=== PATIENT | male | born 1945 | race Caucasian/White ===

== ENCOUNTER 2019-12-04 15:14 | Emergency (ER) | payer MEDICARE, OTHER ==
[~2019-12-04] VITALS: Ht 165.1 cm; Wt 70.3 kg
[2019-12-04 17:31] LABS: BASOPHILS # (AUTO) 0.1 (0.0-0.1); BASOPHILS % 0.5 % (0.0-1.0); EOSINOPHILS # (AUTO) 0.1 (0.0-0.4); EOSINOPHILS % 0.8 % (0.0-6.0); HEMATOCRIT 41.2 % (38.2-49.6); HEMOGLOBIN 13.7 g/dL (14.0-18.0); LYMPHOCYTES # (AUTO) 3.2 (1.0-3.2); LYMPHOCYTES % 27.1 % (18.0-39.1); MEAN CORPUSCULAR HEMOGLOBIN 30.4 pg (28-32); MEAN CORPUSCULAR HGB CONC 33.3 g/dL (31-35); MEAN CORPUSCULAR VOLUME 91.6 fL (81-99); MONOCYTES # (AUTO) 0.6 (0.2-0.8); MONOCYTES % 5.3 % (4.4-11.3); NEUTROPHILS # (AUTO) 7.8 (2.1-6.9); PLATELET COUNT 269 x10e3/uL (140-360); RED CELL DISTRIBUTION WIDTH 13.5 % (11.7-14.4)
[2019-12-04 17:38] LABS: INR 1.02; PROTHROMBIN TIME 13.9 seconds (11.9-14.5)
[2019-12-04 17:39] LABS: PARTIAL THROMBOPLASTIN TIME 35.2 seconds (23.8-35.5)
[2019-12-04 17:46] LABS: ALANINE AMINOTRANSFERASE 16 IU/L (0-55); ALBUMIN 4.2 g/dL (3.5-5.0); ALBUMIN/GLOBULIN RATIO 1.2 (0.8-2.0); ALKALINE PHOSPHATASE 77 IU/L (40-150); BLOOD UREA NITROGEN 19 mg/dL (7-26); BUN/CREATININE RATIO 18 (6-25); CALCIUM 9.2 mg/dL (8.4-10.2); CARBON DIOXIDE 25 mmol/L (22-29); CHLORIDE 103 mmol/L (98-107); CREATINE KINASE 125 IU/L (30-200); CREATININE, SERUM 1.07 mg/dL (0.72-1.25); EST GLOMERULAR FILTRATION RATE > 60 ML/MIN (60-); GLUCOSE 114 mg/dL (74-118); SODIUM 139 mmol/L (136-145)
[2019-12-04 17:51] LABS: BILIRUBIN,URINE NEGATIVE (NEGATIVE); CLARITY,URINE CLEAR (CLEAR); COLOR,URINE YELLOW (YELLOW); KETONES,URINE NEGATIVE (NEGATIVE); LEUKOCYTE ESTERASE ,URINE NEGATIVE (NEGATIVE); NITRITE,URINE NEGATIVE (NEGATIVE); PROTEIN,URINE DIPSTICK NEGATIVE (NEGATIVE); URINE UROBILINOGEN 0.2 mg/dL (0.2 - 1)
[2019-12-04 18:02] LABS: BACTERIA,URINE FEW /HPF
--- NOTE | 2019-12-04 18:09 | Emergency Department Note ---
History of Present Illnes History of Present Illness Chief Complaint: General Medicine Complaints History of Present Illness This is a 74 year old male presents to the ED for 3 month history of back pain. Patient had outpatient XR done of the back which demonstrated a large aortic aneurysm. Outpatient XR unable to contact PCP and was sent to the ED for further management. Historian: Patient Arrival Mode: Car Onset (how long ago): week(s) Radiation: Reports back Severity: mild Onset quality: gradual Duration (how long): month(s) (3) Timing of current episode: constant Progression: unchanged Chronicity: new Context: Denies recent illness, Denies recent surgery, Denies recent immobilization, Denies recent travel, Denies trauma/injury, Denies new medications, Denies hx of DVT/PE, Denies non-compliance w/ medications, Denies other Relieving factors: none Exacerbating factors: none Associated symptoms: Denies denies other symptoms, Denies confusion, Denies chest pain, Denies cough, Denies diaphoresis, Denies fever/chills, Denies headaches, Denies loss of appetite, Denies malaise, Denies nausea/vomiting, Denies rash, Denies seizure, Denies shortness of breath, Denies syncope, Denies weakness, Denies other Treatments prior to arrival: none Past Medical/Family History Physician Review I have reviewed the patient's past medical and family history. Any updates have been documented here. Past Medical History Recent Fever: No Clinical Suspicion of Infectio: No New/Unexplained Change in Ment: No Past Medical History: Hypertension, Depression, Hyperlipedemia, Osteoarthritis Other Medical History: BPH Past Surgical History: None Social History Smoking Cessation: Never Smoker Counseling Performed: No Alcohol Use: None Any Illegal Drug Use: No Other Any Pre-Existing Lines (PICC,: No Review of Systems Review of Systems Constitutional: Reports no symptoms EENTM: Reports no symptoms Cardiovascular: Reports no symptoms Respiratory: Reports no symptoms Gastrointestinal: Reports no symptoms Genitourinary: Reports no symptoms Musculoskeletal: Reports back pain Integumentary: Reports no symptoms Neurological: Reports no symptoms Psychological: Reports no symptoms Endocrine: Reports no symptoms Hematological/Lymphatic: Reports no symptoms Physical Exam Related Data Allergies: Coded Allergies: No Known Allergies (Unverified , 12/04/19) Triage Vital Signs Vital Signs Date Time Temp Pulse Resp B/P (MAP) Pulse Ox O2 Delivery O2 Flow Rate FiO2 12/04/19 16:45 97.6 62 16 128/85 100 Room Air Vital signs reviewed: Yes Physical Exam CONSTITUTIONAL Constitutional: Present well-developed, Present well-nourished HENT HENT: Present normocephalic, Present atraumatic, Present oropharynx clear/moist, Present nose normal HENT L/R: Present left ext ear normal, Present right ext ear normal EYES Eyes: Reports PERRL, Reports conjunctivae normal NECK Neck: Present ROM normal PULMONARY Pulmonary: Present effort normal, Present breath sounds normal CARDIOVASCULAR Cardiovascular: Present regular rhythm, Present heart sounds normal, Present capillary refill normal, Present normal rate GASTROINTESTINAL Abdominal: Present soft, Present nontender, Present bowel sounds normal GENITOURINARY Genitourinary: Present exam deferred SKIN Skin: Present warm, Present dry MUSCULOSKELETAL Musculoskeletal: Present ROM normal NEUROLOGICAL Neurological: Present alert, Present oriented x 3, Present no gross motor or sensory deficits PSYCHOLOGICAL Psychological: Present mood/affect normal, Present judgement normal Results Laboratory Result Diagram: 12/04/19 1658 12/04/19 1658 Laboratory Laboratory Tests Test 12/04/19 17:08 12/04/19 16:58 Urine Color Yellow (YELLOW) Urine Clarity Clear (CLEAR) Urine pH 5.5 (5 - 7) Urine Specific [place] 1.025 (1.010-1.025) Urine Protein Negative (NEGATIVE) Urine Glucose (UA) Negative (NEGATIVE) Urine Ketones Negative (NEGATIVE) Urine Blood Small (NEGATIVE) Urine Nitrite Negative (NEGATIVE) Urine Bilirubin Negative (NEGATIVE) Urine Urobilinogen 0.2 mg/dL (0.2 - 1) Urine Leukocyte Esterase Negative (NEGATIVE) Urine RBC 6-10 /HPF (0-5) Urine WBC None /HPF (0-5) Urine Epithelial Cells None /LPF (NONE) Urine Bacteria Few /HPF (NONE) White Blood Count 11.86 x10e3/uL (4.8-10.8) Red Blood Count 4.50 x10e6/uL (4.3-5.7) Hemoglobin 13.7 g/dL (14.0-18.0) Hematocrit 41.2 % (38.2-49.6) Mean Corpuscular Volume 91.6 fL (81-99) Mean Corpuscular Hemoglobin 30.4 pg (28-32) Mean Corpuscular Hemoglobin Concent 33.3 g/dL (31-35) Red Cell Distribution Width 13.5 % (11.7-14.4) Platelet Count 269 x10e3/uL (140-360) Neutrophils (%) (Auto) 66.0 % (38.7-80.0) Lymphocytes (%) (Auto) 27.1 % (18.0-39.1) Monocytes (%) (Auto) 5.3 % (4.4-11.3) Eosinophils (%) (Auto) 0.8 % (0.0-6.0) Basophils (%) (Auto) 0.5 % (0.0-1.0) Neutrophils # (Auto) 7.8 (2.1-6.9) Lymphocytes # (Auto) 3.2 (1.0-3.2) Monocytes # (Auto) 0.6 (0.2-0.8) Eosinophils # (Auto) 0.1 (0.0-0.4) Basophils # (Auto) 0.1 (0.0-0.1) Absolute Immature Granulocyte (auto 0.04 x10e3/uL (0-0.1) Prothrombin Time 13.9 seconds (11.9-14.5) Prothromb Time International Ratio 1.02 Activated Partial Thromboplast Time 35.2 seconds (23.8-35.5) Sodium Level 139 mmol/L (136-145) Potassium Level 4.0 mmol/L (3.5-5.1) Chloride Level 103 mmol/L (98-107) Carbon Dioxide Level 25 mmol/L (22-29) Anion Gap 15.0 mmol/L (8-16) Blood Urea Nitrogen 19 mg/dL (7-26) Creatinine 1.07 mg/dL (0.72-1.25) Estimat Glomerular Filtration Rate > 60 ML/MIN (60-) BUN/Creatinine Ratio 18 (6-25) Glucose Level 114 mg/dL (74-118) Calcium Level 9.2 mg/dL (8.4-10.2) Total Bilirubin 0.2 mg/dL (0.2-1.2) Aspartate Amino Transf (AST/SGOT) 18 IU/L (5-34) Alanine Aminotransferase (ALT/SGPT) 16 IU/L (0-55) Alkaline Phosphatase 77 IU/L (40-150) Creatine Kinase 125 IU/L (30-200) Troponin I 0.001 ng/mL (0-0.300) Total Protein 7.8 g/dL (6.5-8.1) Albumin 4.2 g/dL (3.5-5.0) Globulin 3.6 g/dL (2.3-3.5) Albumin/Globulin Ratio 1.2 (0.8-2.0) Imaging Imaging results reviewed: Yes Impressions [place] [id number] Patient Name: SETH MARROQUIN MR #: [id number] : 1945 Age/Sex: 74/M Req #: [id number] Adm Physician: Ordered by: ROSALIE GALLOWAY DO Report #: [id number] Location: ER Room/Bed: Procedure: [id number] CT/CTA CHEST Exam Date: 12/04/19 Exam Time: 1825 REPORT STATUS: Signed EXAM: CTA of the Thoracoabdominal Aorta and Pelvic Arteries WITH Contrast INDICATION:^back pain ^20191204 ^1825 COMPARISON: Abdominal aortic ultrasound performed earlier on the same day (12/04/2019) TECHNIQUE: Multi-detector CT technology was employed. CTA Gated axial imaging of the chest, abdomen, and pelvis was performed after the administration of IV contrast. IV CONTRAST: 100 mL of Isovue 370 ORAL CONTRAST: None COMPLICATIONS: None RADIATION DOSE: Total DLP: 474.18 mGy*cm Estimated effective dose: (DLP x 0.015 x size factor) mSv CTDIvol has been reviewed. It is below the limits set by the Radiation Protocol Committee (RPC). For optimization of anatomic evaluation, multiplanar reconstruction, maximum intensity projections, and advanced 3-D off-line postprocessing were performed on a dedicated stand-alone workstation under the direct supervision of the interpreting physician. FINDINGS: Potential study limitations: None. LINES/ TUBES: None. VASCULAR WITH ADVANCED 3-D OFF-LINE POSTPROCESSING: Aortic valve morphology is trileaflet and contains no calcifications. The thoracic aorta is normal in course. There is no acute aortic pathology, such as dissection, intramural hematoma, or contained rupture. Aneurysmal dilatation of the distal aortic arch, immediately after the origin of the left subclavian artery, measuring up to 4.5 cm in maximal dimension. Associated atherosclerotic plaque with small plaque ulceration, largest measures up to 0.5 cm in depth. Additional fusiform aneurysmal dilatation of the distal thoracic aorta, measuring up to 6.3 cm in maximal dimension. Associated noncalcified atherosclerotic plaque or chronic thrombus extends along 50% of the circumference. Aortic plaques: Mild. The arch vessel branching pattern is conventional. All of the arch branch vessels appear widely patent in their proximal portions. Abdominal aortic aneurysm detail anatomy: Fusiform aneurysm of the infrarenal abdominal aorta, which begins immediately after the origin of the renal arteries and extends down to aortic bifurcation. The aneurysm measures up to 6.6 x 6.5 cm in maximal dimension with circumferential noncalcified atherosclerotic plaque versus chronic thrombus. The abdominal aorta is normal in course. There is no acute aortic pathology. Mixing artifact at the distal abdominal aorta/aortic bifurcation partially limits evaluation. Aortic plaques: Moderate. 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 The abdominal aorta measures: 2.9 cm at the supramesenteric segment 2.6 cm at the mesenteric segment 3.4 cm at the renal segment 6.6 cm at the mid infrarenal segment 3.9 cm at the aortic bifurcation. The celiac axis and SMA are patent. There are single renal arteries bilaterally, both of which appear patent. CHACORTA arises from infrarenal abdominal aortic aneurysm and is not opacified with contrast. The pelvic arteries are normal in caliber and contour. There are moderate atherosclerotic changes of the pelvic arteries. 1.4 cm at the right common iliac artery 1 cm at the right external iliac artery 1.1 cm at the left common iliac artery 1 cm at the left external iliac artery LUNGS AND AIRWAYS: Calcified granulomas in the right upper and lower lobes measure up to 3 mm. No additional suspicious pulmonary nodules or consolidations. Focal cystic changes along the lateral mediastinal portion of the right lower lobe. Airways are patent. PLEURA: The pleural spaces are clear.. HEART AND MEDIASTINUM: The thyroid gland is normal. No mediastinal, hilar or axillary lymphadenopathy. The main pulmonary artery is normal in size. The cardiac chambers are normal in size. The coronary arteries have normal origins and courses. There are moderate coronary calcifications identified, though this study was not optimized for coronary artery evaluation. There is no pericardial effusion. ABDOMEN/PELVIS: The liver, gallbladder, spleen, and pancreas are unremarkable. No abnormal thickening or nodules in the adrenal glands. Both kidneys are normal in size, shape, and density. There is no abnormal mass or hydronephrosis. Urinary bladder is unremarkable. Mildly enlarged prostate with dystrophic calcifications. No abnormal bowel wall thickening, dilation, or evidence of obstruction. Scattered colonic diverticula without evidence of acute diverticulitis. There is no significant retroperitoneal adenopathy. No free fluid or free air within the abdomen or pelvis. BONES/SOFT TISSUES: Transitional lumbosacral anatomy with partial sacralization of L5. Bilateral L4 pars defects with grade 2 anterolisthesis at L4 on L5. Associated advanced degenerative disc changes. Otherwise, no acute osseous abnormalities. No acute soft tissue abnormalities. IMPRESSION: 1. Fusiform aneurysm of the distal arch/proximal descending thoracic aorta measuring up to 4.5 cm with small plaque ulceration. 2. Fusiform aneurysm of the distal descending thoracic aorta measuring up to 6.3 cm with noncalcified plaque and/or chronic thrombus. 3. Fusiform aneurysm of the infrarenal abdominal aorta measuring up to 6.6 cm with noncalcified plaque and/or chronic thrombus. 4. No evidence of acute aortic injury, such as dissection or aneurysm rupture. 5. CHACORTA arises from infrarenal abdominal aortic aneurysm and appears occluded. 6. Colonic diverticulosis without evidence of acute diverticulitis. 7. 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 Signed by: Dr. Dionna Larkin M.D. on 12/04/2019 8:36 PM Dictated By: DIONNA LARKIN MD 35 Transcribed By: KRISTYN on 12/04/192035 COPY TO: ROSALIE GALLOWAY DO~ Procedures FAST Exam FAST Exam: FAST Exam 1 Fluid in Morison's pouch: No Fluid in splenorenal junction: No Fluid around bladder, traverse: No Fluid around bladder, sagittal: No Fluid in pericardial sac: No Gross wall motion abnormality: No Study normal for this patient: No Critical Care Time Total Critical Care Time (min): 31 Critcal care necessary due to: shock Critcal care time spent by me: develop tx plan w patient/surrogate, discussion w consultants, discussion w primary provider, evaluation patient response to tx, examination of patient, obtaining hx from patient/surrogate, order/perform tx or interventions, order/review laboratory studies, order/review radiographic eula dies, re-evaluation of patient condition Assessment & Plan Medical Decision Making MDM Dff Dx : AAA, TAA, rupture Reassessment Reassessment time: 23:57 Reassessment Awaiting transfer to [facility] to ICU. S/W transfer center who assured that room will be available in the AM. Patient periodically re-evaluated. FAST EXAM done at bedside did not reveal any intraperitoneal bleeding. Patient without pain or complaints at this time. Assessment & Plan Final Impression: (1) AAA (abdominal aortic aneurysm) without rupture Depart Disposition: TRANS TO OTHER [facility] Last Vital Signs Date Time Temp Pulse Resp B/P (MAP) Pulse Ox O2 Delivery O2 Flow Rate FiO2 12/04/19 17:59 99.2 62 16 128/77 99 Room Air Home Meds Reported Medications Ibuprofen (IBUPROFEN) 600 Mg Tablet, 600 MG PO Q12H PRN for Mild Pain (1-3) or Fever>100.8 12/04/19 Lisinopril (PRINAVIL / ZESTRIL) 20 Mg Tablet, 20 MG PO DAILY 12/04/19 Simvastatin (SIMVASTATIN) 20 Mg Tablet, 20 MG PO DAILY 12/04/19 Alendronate Sodium (ALENDRONATE SODIUM) 70 Mg Tablet, 70 MG PO UD 1 tablet by mouth once weekly 12/04/19 Finasteride (FINASTERIDE) 5 Mg Tablet, 5 MG PO HS 12/04/19 Tamsulosin Hcl* (FLOMAX*) 0.4 Mg Cap, 0.4 MG PO HS 12/04/19 Sertraline Hcl (SERTRALINE HCL) 50 Mg Tablet, 50 MG PO DAILY 12/04/19 ROSALIE GALLOWAY DO Dec 04, 2019 18:09
[2019-12-04] MEDS ORDERED: ACETAMINOPHEN 325 MG TAB PO NR (18:10)
--- NOTE | 2019-12-04 18:28 | Diagnostic Imaging Report ---
EXAM: Abdominal Aorta Ultrasound INDICATION: Possible blood clot ^20191204 ^1734 COMPARISON: None. TECHNIQUE: Grayscale, color Doppler, and spectral waveform analysis of the abdominal aorta and common iliac arteries was performed. FINDINGS: Diameter (AP x Transverse) Proximal Aorta: 1.9 x 2.4 cm Mid Aorta: 1.9 x 2.5 cm Distal Aorta: 5.8 x 6.1 cm Aneurysm: Fusiform dilatation of the distal abdominal aorta with small amount of plaque versus clot along the sellers. Calcifications: None Doppler flow: Normal Waveforms: Normal IMPRESSION: Fusiform aneurysm of the distal abdominal aorta measuring up to 6.1 cm with small amount of atherosclerotic plaque versus clot along the wall. Recommend vascular surgery consultation and follow-up CTA abdomen and pelvis. Findings discussed with ER physician, Dr. Vazquez, on 12/04/2019 at 1824. Signed by: Dr. Armand Esteban M.D. on 12/04/2019 6:25 PM
[2019-12-04] MEDS ORDERED: ACETAMINOPHEN 325 MG TAB ONE (19:00)
[2019-12-04] MEDS ORDERED: IOPAMIDOL 370 MG/ML 200 ML INFUS..BTL INJ ONE (19:21)
[2019-12-04] MEDS ORDERED: SODIUM CHLORIDE 0.9% 50ML 50 ML ONE (19:21)
--- NOTE | 2019-12-04 19:24 | NUR ---
TRANSFER INITIATED TO REPLACED BY [facility]
[2019-12-04] MEDS ORDERED: HYDRALAZINE HCL 20 MG/ML VIAL IV STA (20:34)
[2019-12-04] MEDS ORDERED: MORPHINE SULFATE INJ 4 MG/ML INJ 1ML IV STA (20:34)
--- NOTE | 2019-12-04 20:39 | Diagnostic Imaging Report ---
EXAM: CTA of the Thoracoabdominal Aorta and Pelvic Arteries WITH Contrast INDICATION:^back pain ^20191204 ^182 COMPARISON: Abdominal aortic ultrasound performed earlier on the same day (12/04/2019) TECHNIQUE: Multi-detector CT technology was employed. CTA Gated axial imaging of the chest, abdomen, and pelvis was performed after the administration of IV contrast. IV CONTRAST: 100 mL of Isovue 370 ORAL CONTRAST: None COMPLICATIONS: None RADIATION DOSE: Total DLP: 474.18 mGy*cm Estimated effective dose: (DLP x 0.015 x size factor) mSv CTDIvol has been reviewed. It is below the limits set by the Radiation Protocol Committee (RPC). For optimization of anatomic evaluation, multiplanar reconstruction, maximum intensity projections, and advanced 3-D off-line postprocessing were performed on a dedicated stand-alone workstation under the direct supervision of the interpreting physician. FINDINGS: Potential study limitations: None. LINES/ TUBES: None. VASCULAR WITH ADVANCED 3-D OFF-LINE POSTPROCESSING: Aortic valve morphology is trileaflet and contains no calcifications. The thoracic aorta is normal in course. There is no acute aortic pathology, such as dissection, intramural hematoma, or contained rupture. Aneurysmal dilatation of the distal aortic arch, immediately after the origin of the left subclavian artery, measuring up to 4.5 cm in maximal dimension. Associated atherosclerotic plaque with small plaque ulceration, largest measures up to 0.5 cm in depth. Additional fusiform aneurysmal dilatation of the distal thoracic aorta, measuring up to 6.3 cm in maximal dimension. Associated noncalcified atherosclerotic plaque or chronic thrombus extends along 50% of the circumference. Aortic plaques: Mild. The arch vessel branching pattern is conventional. All of the arch branch vessels appear widely patent in their proximal portions. Abdominal aortic aneurysm detail anatomy: Fusiform aneurysm of the infrarenal abdominal aorta, which begins immediately after the origin of the renal arteries and extends down to aortic bifurcation. The aneurysm measures up to 6.6 x 6.5 cm in maximal dimension with circumferential noncalcified atherosclerotic plaque versus chronic thrombus. The abdominal aorta is normal in course. There is no acute aortic pathology. Mixing artifact at the distal abdominal aorta/aortic bifurcation partially limits evaluation. Aortic plaques: Moderate. 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 The abdominal aorta measures: 2.9 cm at the supramesenteric segment 2.6 cm at the mesenteric segment 3.4 cm at the renal segment 6.6 cm at the mid infrarenal segment 3.9 cm at the aortic bifurcation. The celiac axis and SMA are patent. There are single renal arteries bilaterally, both of which appear patent. CHACORTA arises from infrarenal abdominal aortic aneurysm and is not opacified with contrast. The pelvic arteries are normal in caliber and contour. There are moderate atherosclerotic changes of the pelvic arteries. 1.4 cm at the right common iliac artery 1 cm at the right external iliac artery 1.1 cm at the left common iliac artery 1 cm at the left external iliac artery LUNGS AND AIRWAYS: Calcified granulomas in the right upper and lower lobes measure up to 3 mm. No additional suspicious pulmonary nodules or consolidations. Focal cystic changes along the lateral mediastinal portion of the right lower lobe. Airways are patent. PLEURA: The pleural spaces are clear.. HEART AND MEDIASTINUM: The thyroid gland is normal. No mediastinal, hilar or axillary lymphadenopathy. The main pulmonary artery is normal in size. The cardiac chambers are normal in size. The coronary arteries have normal origins and courses. There are moderate coronary calcifications identified, though this study was not optimized for coronary artery evaluation. There is no pericardial effusion. ABDOMEN/PELVIS: The liver, gallbladder, spleen, and pancreas are unremarkable. No abnormal thickening or nodules in the adrenal glands. Both kidneys are normal in size, shape, and density. There is no abnormal mass or hydronephrosis. Urinary bladder is unremarkable. Mildly enlarged prostate with dystrophic calcifications. No abnormal bowel wall thickening, dilation, or evidence of obstruction. Scattered colonic diverticula without evidence of acute diverticulitis. There is no significant retroperitoneal adenopathy. No free fluid or free air within the abdomen or pelvis. BONES/SOFT TISSUES: Transitional lumbosacral anatomy with partial sacralization of L5. Bilateral L4 pars defects with grade 2 anterolisthesis at L4 on L5. Associated advanced degenerative disc changes. Otherwise, no acute osseous abnormalities. No acute soft tissue abnormalities. IMPRESSION: 1. Fusiform aneurysm of the distal arch/proximal descending thoracic aorta measuring up to 4.5 cm with small plaque ulceration. 2. Fusiform aneurysm of the distal descending thoracic aorta measuring up to 6.3 cm with noncalcified plaque and/or chronic thrombus. 3. Fusiform aneurysm of the infrarenal abdominal aorta measuring up to 6.6 cm with noncalcified plaque and/or chronic thrombus. 4. No evidence of acute aortic injury, such as dissection or aneurysm rupture. 5. CHACORTA arises from infrarenal abdominal aortic aneurysm and appears occluded. 6. Colonic diverticulosis without evidence of acute diverticulitis. 7. 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 Signed by: Dr. Armand Esteban M.D. on 12/04/2019 8:36 PM
[2019-12-04] MEDS ORDERED: LISINOPRIL20 MG PO (22:09)
[2019-12-04] MEDS ORDERED: IBUPROFEN600 MG PO (22:09)
[2019-12-04] MEDS ORDERED: FLOMAX0.4 MG PO (22:09)
[2019-12-04] MEDS ORDERED: SIMVASTATIN20 MG PO (22:09)
[2019-12-04] MEDS ORDERED: ALENDRONATE SOD70 MG PO (22:09)
[2019-12-04] MEDS ORDERED: SERTRALINE HCL50 MG PO (22:09)
[2019-12-04] MEDS ORDERED: FINASTERIDE5 MG PO (22:09)
[2019-12-04] MEDS ORDERED: METOPROLOL TARTRATE INJ 1 MG/ML VIAL IV ONE (22:30)
--- NOTE | 2019-12-04 22:30 | NUR ---
STANDING ORDERS TO MEDICATE HTN, NOTED THAT BP WNL AT THIS TIME @124/79 HR 60, HOLDING MEDICATION, ED MD MADE AWARE, STATES TO MEDICATE PRN.
--- NOTE | 2019-12-05 03:33 | NUR ---
PT HAS BEEN SLEEPING THROUGHOUT THE NIGHT WHEN ASSESSED DURING NURSING ROUNDS, DAUGHTER REMAINS AT BEDSIDE, PT C ASYMPTOMATIC HYPOTENSION, OTHERWISE OTHER VSS, NAD, RESP E/U, SKIN W/D, AND NO C/O PAIN PER PT; ED MD AWARE AND PLAN TO CONTINUE WITH CURRENT POC FOR TRANSFER TO [facility], NO FURTHER ORDERS AT THIS TIME, WILL CONTINUE TO MONITOR.
[2019-12-05 12:53] VITALS: BP 138/97
== END 2019-12-05 13:59 | disposition other institution (70) ==
LOC: ER 16:36
DX: I71.4 Abdominal aortic aneurysm, without rupture (principal); I10 Essential (primary) hypertension; E78.5 Hyperlipidemia, unspecified; F32.9 Major depressive disorder, single episode, unspecified; Z11.59 Encounter for screening for other viral diseases
CPT/HCPCS: 36415; 71275; 74174; 76770; 80053; 81001; 82550; 82553; 84484; 85025; 85610; 85730; 87086; 99284; J0360; J2270; Q9967; U0002